=== PATIENT | male | born 1930 | race Caucasian/White ===

== ENCOUNTER 2020-09-05 17:52 | Emergency (ER) | payer MEDICARE ==
[~2020-09-05 17:52] MED LIST: ASPIRIN EC81 MG PO; ATENOLOL25 MG PO; CERTAGEN1 EACH PO; CRESTOR10 MG PO; FEOSOL325 MG PO; FINASTERIDE5 MG PO; IMDUR 30MG TABL30 MG PO; KEPPRA500 MG PO; LIPITOR20 MG PO; NITROQUIK SL0.4 MG SL; NORCO 5-325 TA1 EACH PO; PRINIVIL10 MG PO
== END 2020-09-05 20:10 | disposition home or self-care (01) ==
LOC: FER 17:52
DX: S51.011A Laceration without foreign body of right elbow, initial encounter (principal); S63.501A Unspecified sprain of right wrist, initial encounter; S60.221A Contusion of right hand, initial encounter; I10 Essential (primary) hypertension; Z88.8 Allergy status to other drugs, medicaments and biological substances; Z79.899 Other long term (current) drug therapy; W19.XXXA Unspecified fall, initial encounter; Y92.009 Unspecified place in unspecified non-institutional (private) residence as the place of occurrence of the external cause
CPT/HCPCS: 73080; 73090; 73130

== ENCOUNTER 2021-02-24 15:37 | Emergency (ER) | payer MEDICARE | END 2021-02-24 19:30 | disposition home or self-care (01) | LOC: FER 15:37 | DX: U07.1 COVID-19 (principal); I25.2 Old myocardial infarction; I10 Essential (primary) hypertension; Z23 Encounter for immunization ==